=== PATIENT | female | born 1940 | race Caucasian/White ===

== ENCOUNTER 2017-05-08 08:04 | Day surgery (SDC) | payer MEDICARE ==
[~2017-05-08] VITALS: Ht 170.2 cm; Wt 76.2 kg
[~2017-05-08 08:04] MED LIST: ASPIR 8181 MG PO; CARAFATE1 GM PO; CRESTOR10 MG PO; CRESTOR20 MG PO; DAILY MULTIPLE1 EACH PO; HYDROCHLOROTHIA25 MG PO; KLOR-CON M2020 MEQ PO; LEVOTHYROXINE125 MCG PO; PRILOSEC OTC20 MG PO; PROPRANOLOL HCL20 MG PO
--- NOTE | 2017-05-08 09:13 | NUR ---
PT WAS VERY RECEPTIVE TO PRAYER, HAS GOOD FAMILY SUPPORT, HER NEICE IS WITH HER, AND SHE IS IN VERY GOOD ATTITUDE.
--- NOTE | 2017-05-08 09:49 | NUR ---
05/08/17 0949 Unique Christensen REPORT FROM WALTER SANCHEZ.
--- NOTE | 2017-05-11 12:08 | OR ---
[facility] [address], [place] [address] Signed DATE OF SERVICE: 05/08/2017 PREOPERATIVE DIAGNOSES: Epigastric pain. Acid reflux. Heart murmur. History of peptic ulcer disease. POSTOPERATIVE DIAGNOSIS: Distal patchy gastritis. PROCEDURE: Esophagogastroduodenoscopy with CLOtest and biopsies of the antrum. ESTIMATED BLOOD LOSS: None. INDICATIONS: Marie is a 76-year-old female, who presents for upper endoscopy. She is having epigastric abdominal pain and acid reflux and heartburn. She has used Zantac and Nexium in the past. She said it actually worked pretty well. More recently, she has been trying sucralfate with omeprazole. She said she is feeling better. She is pretty certain she had peptic ulcer disease in the past. 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 She said that was very stressful. Her 3 years ago from colorectal cancer. She said that was too much and she finally retired. Overall, she says she is feeling better. Nevertheless, she wanted to come and have her stomach checked. She has had several colonoscopies in the past so she is familiar with endoscopy. I had met with Marie in the office and I gave her a pamphlet on upper endoscopy. We reviewed the nature of that test along with its risks including but not limited to gas, bloating, crampy abdominal pain, bleeding, perforation requiring surgery, and missed diagnosis. We also discussed the need for IV conscious sedation. She had expressed understanding and wished to proceed. PROCEDURE NOTE: Marie was taken into our endoscopy suite and placed in the supine semi-recumbent position. She was given divided doses of 5 mg of Versed and 100 mcg of fentanyl. The posterior oropharynx was anesthetized with Hurricaine spray. A bite block was utilized for the case. The adult gastroscope was introduced ad advanced all the way out into the third portion of the duodenum under direct visualization with the camera without difficulty. The duodenum and pyloric channel were unremarkable. In her stomach, she does have some patchy erythematous changes just outside the opening of the antrum. We went and took some biopsies of this area along with a biopsy for CLOtest. The rest of the stomach was unremarkable. Upon retroflexion of the scope, she does not have a true hiatal hernia. A little bit of the stomach was pulled on the one side, but overall it is Electronically Signed By: JUAN JOSE MARTIN MD 05/11/17 1208 PATIENT NAME: MARIE GO OPERATIVE REPORT DATE OF : 42 PHYSICIAN: JUAN JOSE MARTIN MD REPORT #: [id number] REPORT IS CONFIDENTIAL AND NOT TO BE RELEASED WITHOUT AUTHORIZATION [facility] [address], [place] [address] Signed not a bad valve. There were no gastric or esophageal varices. The scope was withdrawn up to the area of the GE junction, which was compliant without stricture. The Z-line remains intact. There was no Bowman mucosa and no distal esophagitis. The rest of the esophagus was unremarkable. After this, the gas was suctioned out and the gastroscope removed. Marie tolerated the upper endoscopy quite well. RECOMMENDATIONS: I will see Marie back in my office in 7-14 days to review her results. It appears she is improving on her current regimen. MD KAVON Tamez/Nina /[id number] cc: Dr. Stephen Padilla,Nurse Practitioner Electronically Signed By: JUAN JOSE MARTIN MD 05/11/17 1208 PATIENT NAME: MARIE GO OPERATIVE REPORT DATE OF : 42 PHYSICIAN: JUAN JOSE MARTIN MD REPORT #: [id number] REPORT IS CONFIDENTIAL AND NOT TO BE RELEASED WITHOUT AUTHORIZATION
== END 2017-05-08 10:30 | disposition home or self-care (01) ==
LOC: OPS 08:04 → DS 08:04 → OPS 09:45
PROVIDERS: Colon & Rectal Surgery
PROC: 0DB68ZX Excision of Stomach, Via Natural or Artificial Opening Endoscopic, Diagnostic (ICD-10-PCS; principal; 2017-05-08 09:45)
DX: K29.50 Unspecified chronic gastritis without bleeding (principal); K21.9 Gastro-esophageal reflux disease without esophagitis; I10 Essential (primary) hypertension; E78.5 Hyperlipidemia, unspecified; E03.9 Hypothyroidism, unspecified; R73.9 Hyperglycemia, unspecified; J45.909 Unspecified asthma, uncomplicated; Z87.11 Personal history of peptic ulcer disease; Z79.82 Long term (current) use of aspirin; Z79.899 Other long term (current) drug therapy; Z90.710 Acquired absence of both cervix and uterus; Z88.1 Allergy status to other antibiotic agents
CPT/HCPCS: 86677; 88305; 99152; J2250; J3010; J7120

== ENCOUNTER 2019-10-28 12:25 | Day surgery (SDC) | payer MEDICARE ==
[~2019-10-28] VITALS: Ht 167.6 cm; Wt 78.0 kg
[~2019-10-28 12:25] MED LIST changes: +KRILL OIL500 MG PO
--- NOTE | 2019-10-28 15:33 | NUR ---
10/28/19 Debbie3 Madelin Sellers 1530-PATIENT ARRIVED TO PACU ON 2L NC AWAKE RR EVEN. DENIES PAIN OR NAUSEA. ENCOURAGED TO PASS GAS. LAYING LEFT LATERAL. IVF INFUSING.
--- NOTE | 2019-10-29 12:08 | OR ---
[facility] [address], [place] [address] Signed DATE OF OPERATION: 10/28/2019 SURGEON: Ramesh Garner MD PREOPERATIVE DIAGNOSIS: Clinical colovaginal fistula. POSTOPERATIVE DIAGNOSIS: Profound sigmoid and left-sided diverticulosis, no clear evidence of fistulous opening. PROCEDURES PERFORMED: 1. Total colonoscopy to cecum with cold morcellation polypectomy x2. 2. Hyperplastic polyps of rectosigmoid x2. ANESTHESIA: Intravenous sedation, fentanyl 100 mcg, Versed 5 mg. INDICATION: This 79-year-old white woman is a patient of Dr. Tracy Klein and Florinda Angulo [facility], in [place]. She has had clinical symptoms suggestive of colovaginal fistula. She has undergone hysterectomy in 1980. She underwent colonoscopy in the distant past, which she originally thought was normal, but upon review of records did show diverticulosis. She has no evidence of sepsis. No pneumaturia to suggest colocystic fistula, but episodic drainage per vagina of stool clinically consistent with colovaginal fistula. She is admitted at this time to undergo colonoscopy to rule out neoplastic disease or other causes of fistulization including inflammatory bowel disease. FINDINGS: Prep was good. Complete colonoscopy was undertaken to the cecum without question. She had numerous diverticuli of the distal sigmoid and left colon. Specific fistulous opening was not identified. There was no sign of cancer. She did have two hyperplastic polyps of the rectosigmoid, which were excised. DESCRIPTION OF PROCEDURE: The patient was brought to the endoscopy suite and placed in lateral decubitus position, given intravenous sedation to the point of slurred speech and nystagmus. Digital rectal examination was normal. An Olympus video colonoscope was passed in the rectum and manipulated throughout the colon noting numerous to large and small diverticuli of the sigmoid and left colon. The Electronically Signed By: RAMESH GARNER MD 10/29/19 1208 PATIENT NAME: GATITO GO OPERATIVE REPORT DATE OF : 42 REPORT #: [id number] PHYSICIAN: RAMESH GARNER MD PCP: FLORINDA ANGULO FMP-Cori REPORT IS CONFIDENTIAL AND NOT TO BE RELEASED WITHOUT AUTHORIZATION [facility] [address], [place] [address] Signed scope was ultimately advanced to the cecum. The ileocecal valve and appendiceal orifice were normal. Scope was withdrawn from that point and examination throughout showed no sign of abnormality until the numerous large and small diverticuli were noted. Careful inspection of the rectosigmoid area showed no sign of fistulization, though clinically it is obviously present. She had 2 small hyperplastic polyps there, which were excised with cold morcellation technique. Retroflexed view of the rectum was otherwise normal. The scope was removed. The patient was taken to recovery room in good condition. CONCLUDING DIAGNOSIS: Clinical evidence of colovaginal fistula, underlying problem likely significantly advanced diverticular disease with distant history of hysterectomy. PLAN: Consideration would be made for sigmoid resection for clinical diagnosis as noted. Whether or not the fistula needs to be demonstrated by some means is debatable and probably unlikely under this circumstances. We will see her back in the near future and review her options of management. MD SANDRA Saunders/MODL /[id number] cc: MD Florinda Ferreira FMP-C Copies: TRACY KLEIN MD, BETTY FMP-C ~ Electronically Signed By: RAMESH GARNER MD 10/29/19 1208 PATIENT NAME: GATITO GO OPERATIVE REPORT DATE OF : 42 REPORT #: [id number] PHYSICIAN: RAMESH GARNER MD PCP: FLORINDA ANGULO REPORT IS CONFIDENTIAL AND NOT TO BE RELEASED WITHOUT AUTHORIZATION
--- NOTE | 2019-10-30 14:01 | PATH ---
[facility] [address] [place], [place] [address] Signed SPECIMEN(S): A SIGMOID POLYP SPECIMEN SOURCE: A. SIGMOID POLYP CLINICAL HISTORY: Hemorrhoids/diverticulosis; hyperplastic polyps x2. MICROSCOPIC DESCRIPTION: Histologic sections of all submitted blocks are examined by light microscopy. These findings, together with the gross examination, support the pathologic diagnosis. FINAL PATHOLOGIC DIAGNOSIS: Sigmoid polyp: - Inflamed hyperplastic polyp (two fragments). JVR:cml:C2NR GROSS DESCRIPTION: The specimen, labeled "SC, hyperplastic polyps 2," is received in formalin and consists of three soft almanza tissue fragments that vary from 0.1-0.3 cm and are submitted in toto in cassette A1. SS (under the direct supervision of a pathologist) The Gross Description was prepared using a voice recognition system. The report was reviewed for accuracy; however, sound-alike word errors, addition and/or deletions may occur. If there is any question about this report, please contact Client Services. PERFORMING LABORATORY: The technical component was performed by [facility], [address] [place] [address] ([employer]: Pricila Estrada MD; CLIA# [id number]). Professional interpretation [place] [address] ([employer]: Aj Gibson M.D.). Diagnostician: Aj Gibson MD Pathologist Electronically Signed 10/30/2019 Copies: PATIENT NAME: GATITO GO PATHOLOGY DATE OF : 42 REPORT #: [id number] PHYSICIAN: CRISTINA PATHOLOGY PCP: KAILYN ANGULO REPORT IS CONFIDENTIAL AND NOT TO BE RELEASED WITHOUT AUTHORIZATION [address] [address] Signed ~ PATIENT NAME: GATITO GO PATHOLOGY DATE OF : 42 REPORT #: [id number] PHYSICIAN: CRISTINA PATHOLOGY PCP: KAILYN ANGULO REPORT IS CONFIDENTIAL AND NOT TO BE RELEASED WITHOUT AUTHORIZATION
== END 2019-10-28 16:25 | disposition home or self-care (01) ==
LOC: OPS 12:25 → DS 12:30 → OPS 14:00 → DS 14:00 → OPS 16:25
PROVIDERS: Surgery
PROC: 0DBN8ZX Excision of Sigmoid Colon, Via Natural or Artificial Opening Endoscopic, Diagnostic (ICD-10-PCS; principal; 2019-10-28 14:00)
DX: K51.40 Inflammatory polyps of colon without complications (principal); K57.30 Diverticulosis of large intestine without perforation or abscess without bleeding; N82.3 Fistula of vagina to large intestine; E03.9 Hypothyroidism, unspecified; Z88.1 Allergy status to other antibiotic agents; Z91.018 Allergy to other foods
CPT/HCPCS: 99153; G0500; J2250; J3010; J7121

== ENCOUNTER 2019-12-18 06:31 | Inpatient (IN) | payer MEDICARE ==
[~2019-12-18] VITALS: Ht 167.6 cm; Wt 73.5 kg
--- NOTE | ~2019-12-18 | DS ---
[facility] [address] [place], [place] [address] Draft ADMISSION DATE: 07/29/2020 DISCHARGE DATE: 08/02/2020 REASON FOR ADMISSION: This 80-year-old white woman is a patient of Dr. Tracy Klein, and was considered to have episodic air per vagina and reported stool per vagina as well. Her evaluation included pelvic exam by Dr. Klein, showing no obvious neoplasm of the vaginal canal in any way. The patient has had history of hysterectomy. Colonoscopy performed by co did confirm diverticulosis. There was no specific finding of fistulization that could be identified. On the basis of her clinical history of hysterectomy reported vaginal air and stool and known diverticulosis. She is considered likely to have a sigmoid diverticular vaginal fistula (colovaginal fistula) and on that basis is admitted to undergo sigmoid resection and remedy of the problem. PHYSICAL EXAMINATION: GENERAL: A well-developed, well-nourished, white woman in no distress. VITAL SIGNS: Height 5 feet 6 inches, weight 73 kg. BMI is 26.1 kg/m2. NECK: Shows no thyromegaly or cervical adenopathy. Trachea midline. CHEST: Clear. HEART: Regular without murmur. ABDOMEN: Soft and flat. RECTAL: Without obvious abnormality. PELVIC: Per the ore bridge operator, normal. HOSPITAL COURSE: The patient had undergone a bowel prep, anticipating sigmoid resection and probable omental pedicle flap to interpose between the anastomosis and vaginal cuff. Upon exploration of the abdomen, she had a very innocuous-appearing sigmoid, though it was somewhat fused to the left pelvic sidewall and sacrum angulating anteriorly to the bladder and contiguous with the posterior bladder wall. There was no sign of phlegmon of the sigmoid. No sign of dense scarring as is usually the case. Incomplete mobilization of the rectosigmoid including the examination of the infra-pelvic and peritoneum area showed no such finding of a colovaginal fissure nor rectovaginal fistula. Details may found in the operative report. On that basis, sigmoid resection was not performed, but an interposition graft of omentum between the rectum, sigmoid, and vaginal remnant was placed. A drain was also placed. There were no other findings of concern. HOSPITAL COURSE: After operation, she was taken to the regular nursing floor, where she was begun on PATIENT NAME: GATITO GO DISCHARGE SUMMARY DATE OF : 42 REPORT #: [id number] PHYSICIAN: RAMESH GARNER MD PCP: MICHELLE NUNO MD REPORT IS CONFIDENTIAL AND NOT TO BE RELEASED WITHOUT AUTHORIZATION [facility] [address] [place], [place] [address] Draft clear liquid diet. The drain was allowed to remain in place and antibiotics were given for the first 24 hours. Notably, a colotomy had been made in mobilizing the rectum, which was repaired with running suture and of course the interposed omentum also applied in the area. She had an unremarkable recovery with prompt recovery of bowel function, and she had a fair amount of diarrhea in the first 24 hours. The Hassan catheter was allowed to remain in place for approximately 48 hours. Stool was checked for C difficile, which showed no evidence of such infection. She was given loperamide, which slowed her bowel down completely. Advancement of her diet to allow for resolution of the diarrhea as well. By the time of discharge, she is ambulating well, tolerating a regular diet. The drain has been removed. She no longer has diarrhea problem and has been withdrawn from the loperamide, which was initiated. DISCHARGE MEDICATIONS: 1. Motrin 600 mg p.o. q.6 hours as needed for pain, #30, refill zero. 2. Tylenol 1000 mg p.o. q.6 hours as needed for pain, #60, no refill. 3. Loperamide 2 mg two tablets p.o. as needed for diarrhea, not to exceed 16 mg daily, dispense #20, refill 2. 4. She will continue her usual medication of aspirin 81 mg a day, hydrochlorothiazide 25 mg daily, potassium chloride 20 mEq p.o. daily, multivitamin one tablet p.o. daily, and propranolol 20 mg p.o. b.i.d. 5. Crestor 10 mg p.o. at bedtime. 6. Krill oil, probiotic one capsule and two tablets p.o. daily, respectively. 7. Synthroid 100 mcg p.o. daily. 8. Omeprazole 20 mg daily. I explained to the patient the operative findings. As there was no evidence of a true colovaginal or colovesical fistula, sigmoid resection was not performed as the disease involvement of the sigmoid seemed minimal in comparison to those typically requiring resection. Interposition graft and omentum between the vaginal cuff and the rectal remnant remains well positioned. I suspect that there was a misapprehension of true effluent vaginally of air or stool. She will be mindful going forward to that effect. Not mentioned previously was the intraoperative examination of the vaginal canal showing no sign of stool or sign of neoplasm or anything else to allow for visualization to hollow organs. DISCHARGE DIAGNOSES: 1. 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 2. History of hysterectomy. 3. Diverticulosis. 4. Hypothyroidism. PATIENT NAME: GATITO GO DISCHARGE SUMMARY DATE OF : 42 REPORT #: [id number] PHYSICIAN: RAMESH GARNER MD PCP: MICHELLE NUNO MD REPORT IS CONFIDENTIAL AND NOT TO BE RELEASED WITHOUT AUTHORIZATION [facility] [address] [place], [place] [address], [place] [address] Draft 5. Gastroesophageal reflux. 6. Dyslipidemia. 7. Chronic hypokalemia. FOLLOWUP PLAN: She is to return to see me in approximately a month. If she has any problems, she will let me know. MD SANDRA Saunders/SHAUN /[id number] cc: MD Tracy Ramirez MD Copies: MICHELLE NUNO MD, PATRICIA J MD ~ PATIENT NAME: GATITO GO DISCHARGE SUMMARY DATE OF : 42 REPORT #: [id number] PHYSICIAN: RAMESH GARNER MD PCP: MICHELLE NUNO MD REPORT IS CONFIDENTIAL AND NOT TO BE RELEASED WITHOUT AUTHORIZATION
--- NOTE | 2020-07-29 13:47 | NUR ---
07/29/20 1347 Sheets,Luisa 1334 PT ARRIVED TO PACU WITH ORAL AIRWAY IN PLACE AND ON 10L VIA MASK. VSS. 1337 PT WAKES TO TACTILE STIMULI AND ORAL REMOVED. EYES REMAIN CLOSED AND RN REORIENTING PT TO PACU. PT EASILY FALLS BACK TO SLEEP. 1345 O2 DECREASED TO 6L. PT REACHING FOR HER FACE AND EDUCATION GIVEN ABOUT SCRATCHING HER EYES.
--- NOTE | 2020-07-29 14:50 | NUR ---
PT ARRIVED TO ROOM 111 FROM PACU. PT ALERT BUT SLEEPY. O2 SATS IN HIGH 90'S TO 100% ON 2LPNC. PT DENIES PAIN, NAUSEA OR SOB. CALL LIGHT AND H2O IN REACH. ASSESSMENT COMPLETED. NO NEEDS OR CONCERNS VOICED.
--- NOTE | 2020-07-29 17:39 | NUR ---
PT RESTING SUPINE IN BED ALERT AND ORIENTED STATES SHE IS COMFORTABLE, OS SAT 99% ON RA. DINNER ORDERED PER PT REQUEST. NO FURTHER NEEDS OR CONCERNS VOICED.
--- NOTE | 2020-07-29 19:22 | NUR ---
SHIFT REPORT RECEIVED FROM FILIBERTO SANCHEZ. PT RESTING IN BED. ABD PAIN 2/, DENIES NEED FOR INTERVENTION. INCISIONS, BECERRIL AND ROMAIN DRAIN WNL. IV FLUIDS INFUSING PER ORDER. NO OTHER NEEDS AT THIS TIME. CALL LIGHT IN REACH.
--- NOTE | 2020-07-29 20:11 | NUR ---
CHARGE ROUNDING. ASSISTED WITH EVENING VS AND I&O'S. PRIMARY RN SPENCER IN ROOM TO ADMINISTER EVENING MEDS.
--- NOTE | 2020-07-29 20:15 | NUR ---
GOT PT ICE WATER PER RN REQUEST, PROVIDED, INTRODUSED SEFT TO PT, NO FURTHER REQUEST AT THIS TIME
--- NOTE | 2020-07-29 20:20 | NUR ---
ASSESSMENT, VS AND I&O COMPLETED. GCS 15, A&O X4. LUNGS CLEART, HEART TONES REGULAR. ABD SOFT, TENDER, MILDLY DISTENDED. INCISION WNL, COVERED MIDLINE. ROMAIN WNL, SS DRAINAGE. CMS INTACT X4 EXTREMITIES. BECERRIL WNL, CARE PROVIDED. IV CDI, WNL, FLUSHED WELL. SCHEDULED MEDS PROVIDED. /10 ABD PAIN, PT DENIES NEED FOR INTERVENTIONS. SCDs ON. NO OTHER NEEDS AT THIS TIME. CALL LIGHT IN REACH.
--- NOTE | 2020-07-29 21:45 | NUR ---
DR GARNER AT RN STATION AND PROVIDED WITH PT UPDATE REGARDING PT GETTING OOB. PT TOLERATED WELL. NO NEW ORDERS.
--- NOTE | 2020-07-29 22:09 | NUR ---
SCHEDULED MEDS PROVIDED. IV WNL. ABD PAIN 01/22, PT DENIES NEED FOR INTERVENTION. NO OTHER NEEDS AT THIS TIME. CALL LIGHT IN REACH.
--- NOTE | 2020-07-29 22:29 | NUR ---
GOT PT UP TO THE TOILET, SBA, PT IS BK IN BED AT THIS TIME, SCD'S PLUGGED BK IN, NO FURTHER REQUEST AT THIS TIME
--- NOTE | 2020-07-30 02:30 | NUR ---
TOOK PT VITALS AND I&Os, TOOK BP MULTIPLE TIMES AND TOOK ONE MANUAL, RN EMPTIED ROMAIN, NO FURTHER REQUEST AT THIS TIME
--- NOTE | 2020-07-30 02:48 | NUR ---
ASSESSMENT, VS AND I&O COMPLETED. JONE AND ROMAIN EMPTIED, WNL. GCS 15, A&O X4. CMS INTACT X 4 EXTREMITIES. BLE COVERED, DRY. LUNGS CLEAR, HEART TONES REGULAR. ABD SOFT AND NONTENDER. IV FLUIDS INFUSING PER ORDER. NO OTHER NEEDS AT THIS TIME. CALL LIGHT IN REACH.
--- NOTE | 2020-07-30 03:42 | NUR ---
PT CALLED TO GET UP TO THE TOILET, ASST PT TO CHANGE ATTENDS, INFORMED RN ABT IV PUMP IN STANDBY, ADDRESSED THE CAUSE, PT IS BK TO BED, SCDS RUNNING, NO FURTHER REQUEST AT THIS TIME
--- NOTE | 2020-07-30 03:55 | NUR ---
PT STATES SHE HAS 7/10 ABD PAIN. PRN PAIN MED AND ICE PACK PROVIDED. NO OTHER NEEDS AT THIS TIME. CALL LIGHT IN REACH.
--- NOTE | 2020-07-30 05:42 | NUR ---
VS AND I&O COMPLETED. BECERRIL AND ROMAIN DRAIN EMPTIED, WNL. IV WNL. PT PAIN DOWN TO A 3/10, NO NEED FOR FURTHER INTERVENTION. ICE WATER PROVIDED. NO OTHER NEEDS. CALL LIGHT IN REACH.
--- NOTE | 2020-07-30 06:24 | NUR ---
ASSESSMENT COMPLETED. GCS 15, A&O X4. OLDER HEAD LACERATION NOTED, DRY. PT COMPLAINS OF NECK PAIN BUT DECLINES PAIN MEDS, ICE PACK PROVIDED. LUNGS HAVE EXPIRATORY WHEEZING IN ALL LOBES. ABD SOFT, NONTENDER, BOWEL TONES ACTIVE. HR IRREGULAR. NO OTHER NEEDS AT THIS TIME. CALL LIGHT IN REACH. FAMILY IN ROOM.
--- NOTE | 2020-07-30 06:45 | NUR ---
PT HAS NOT MET [facility] ACCORDING TO MD PARAMETERS. MD NOTIFIED BY PHONE. ORDERS 500ML BOLUS OF LR @ 1000ML/HR. ORDER REPEATED BACK.
--- NOTE | 2020-07-30 07:00 | NUR ---
SCHEDULED LR BOLUS PROVIDED PER ORDER. PT UP TO BR. PT WANTS "TO JUST SIT IN THE BATHROOM FOR AWHILE". CALL LIGHT IN REACH.
--- NOTE | 2020-07-30 07:02 | NUR ---
PT SITTING UP IN BATHROOM HAVING BM AGREES TO USE CALL LIGHT WHEN FINISHED. REPORT RECEIVED FROM NOC SHIFT RN DANIEL PALMER.
[2020-07-30] MEDS ORDERED: LORAZEPAM0.5 MG PO (08:21)
[2020-07-30] MEDS ORDERED: CRESTOR20 MG PO (08:22)
[2020-07-30] MEDS ORDERED: KRILL OIL 1,001 EAC1 PO (08:23)
[2020-07-30] MEDS ORDERED: PROBIOTIC1 EAC7 PO (08:24)
[2020-07-30] MEDS ORDERED: LEVOTHYROXINE112 MCG PO (08:25)
[2020-07-30] MEDS ORDERED: LEVOTHYROXINE100 MCG PO (08:25)
--- NOTE | 2020-07-30 09:00 | NUR ---
Spoke with Marie, she is agitated/upset. States she ordered breakfast and it has come, ROMAIN is 1/2 full and she would like it emptied, let her know I will update her nurse. She states she has spent the night having diarrhea. She goes on to explain several things have happened recently, her transmission went out of her car this week, her TV has stopped working, and she had surgery. She is concerned as she lives alone in [place] in a 1 story home. She states she cannot go home alone. She then states her son will be here to work on her car and her daughter will be here Sunday, to stay a week with her. She states she is overwhelmed. She is concerned she will be discharged, informed I don't think that will happen for a day or so. Let her know Dr Hensley will see her today. She does not use any DME and drives self. She is active. Let her know, I will tell the nurse she needs breakfast and would like her ROMAIN emptied.
--- NOTE | 2020-07-30 09:35 | NUR ---
iv pump beeping pt in restroom and was assisted up to chair, clear liquid tray arrived and pt now eating, i vfluids infusing at 85ml/hr. call light and h2o in reach. pt denies further needs or concerns states pain is tolerable and denies nausea,sob or other symptoms.
--- NOTE | 2020-07-30 09:55 | NUR ---
Pt found to have low urine output of 50mls of concentrated lexi urine. Pt states "I'm drinking but its just coming out the other end" Pt has had multiple liquid stools this morning. DANIEL Reyes notified and agrees to notify Dr Hensley once he is finished with his current procedure.
[2020-07-30] MEDS ORDERED: OMEPRAZOLE20 MG PO (10:26)
--- NOTE | 2020-07-30 10:31 | NUR ---
pt reports 5/10 pain to abdomen states "I feel really bloated today". Bt's active, ice pack applied per pt request. PRN IV ofirmev also administered per pt request.
--- NOTE | 2020-07-30 11:13 | NUR ---
MED REC COMPLETE
--- NOTE | 2020-07-30 12:26 | NUR ---
PT ALERT, ORIENTED AND SUPPORTED BY HER DAUGHTER DALJIT. PT LOOKING FORWARD TO HAVING SOLID FOOD AGAIN, LIQUID LUNCH TRAY BROUGHT IN WHILE I WAS WITH PT. HAD OPPORTUNITY TO ENCOURAGE PT, GAVE HER A P.BERNADINEWL AND G.POST. PT REQUESTED PRAYER. WILL CONTINUE TO FOLLOW
--- NOTE | 2020-07-30 13:52 | OR ---
[facility] [address] [place], [place] [address] Signed DATE OF OPERATION: 07/29/2020 SURGEON: Ramesh Garner MD PREOPERATIVE DIAGNOSES: 1. 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 2. History of hysterectomy for benign disease. POSTOPERATIVE DIAGNOSES: 1. 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 2. History of hysterectomy for benign disease. 3. No clinical evidence of colovaginal fistula; fusion of rectum to the vaginal stump noted without clinical evidence of fistula. PROCEDURE: 1. Exploration of abdomen and dissection of deep pelvis and colovaginal septum. 2. Placement of a vascularized omental pedicle graft (interposition graft) between the rectum and the vagina. 3. Vaginal bivalve speculum exam. ANESTHESIA: General endotracheal; Ramesh Darden CRNA. INDICATION: This 80-year-old white woman, who is a patient of Dr. Klein and is considered to have episodic air per vagina as well as reported stool per vagina. Her evaluation included a pelvic exam by Dr. Klein, showing no obvious neoplasm of vaginal canal in any way. Colonoscopy performed by ct did confirm diverticulosis. There was no specific finding of fistulization that could be identified. On the basis of her clinical diagnosis of presumed colovaginal fistula, sigmoid resection with repair of the fistula has been recommended. Notably, she underwent hysterectomy a number of years ago for benign disease. She is admitted to undergo resection of sigmoid and repair of presumed colovaginal fistula. She understands the risks of bleeding, infection, recurrence, need for other indicated procedures. An omental pedicle flap was deemed possible as well depending on clinical findings. She understands and she wishes to proceed. Electronically Signed By: RAMESH GARNER MD 07/30/20 1352 PATIENT NAME: GATITO GO OPERATIVE REPORT DATE OF : 42 REPORT #: [id number] PHYSICIAN: RAMESH GARNER MD PCP: STEPHEN NUNO MD REPORT IS CONFIDENTIAL AND NOT TO BE RELEASED WITHOUT AUTHORIZATION [facility] [address] [facility] [place], [place] [address] Signed FINDINGS: There was surgical absence of the uterus as known. There was remnant of right fallopian tube, but no evidence of retained ovary tissue and diverticular change of the sigmoid, which were minimal, absolutely no thickening of the sigmoid mesentery, and fusion of the sigmoid to the posterior sacral area with anterior angulation of the rectum to the vaginal cuff remnant. The bladder appeared normal. Dissection of the low pelvis showed no evidence of a rectovaginal fistula and there clearly was no colovaginal fistula proper. An interposition omental pedicle graft was placed between the dissected anterior rectum and posterior vaginal wall. Speculum exam demonstrated no neoplasm of the vaginal cuff or vaginal canal in any way and no clinical evidence of fistulization at this point. Sigmoid resection was not undertaken due to the paucity of findings and the consideration that true rectovaginal fistula would need to be repaired transrectally rather than by pelvic approach. The gallbladder itself was palpably and visibly normal as was the liver and small bowel examined. The vascularized omental pedicle came from the central portion of the transverse colon with a dedicated vascular pedicle with it was secured to the septum between vaginal wall and rectal wall with good effect. A drain was placed. DESCRIPTION OF PROCEDURE: The patient was brought to the operating room and given a general endotracheal anesthetic, a Hassan catheter was placed. A full bowel prep including oral antibiotics, IV antibiotics had been given. After satisfactory anesthesia and placement of Hassan catheter, the abdomen was prepared with chlorhexidine solution and draped sterilely. An infraumbilical incision was made using an open technique, the abdomen entered without problem. There was no sign of ascites or carcinomatosis. The underlying small bowel was normal. A Bookwalter retractor was affixed to the table. The small bowel was packed cephalad and to the right and examined and found was an impressively redundant right colon the cecum extending down into the pelvis itself. The cecum was gathered up and retracted using laparotomy packs as well, exposing than only the left colon and the pelvic structures. These were secured with moist laparotomy packs and attachments to the Bookwalter retractors. Unexpected was a finding of an apparent fusion of the sigmoid mesentery to the sacrum. The more proximal colon had no obvious diverticular changes, though the sigmoid had a few but not many, and certainly no sign of inflammation or edema or intense thickening had been imagined based on her prior history. The pelvic peritoneum was well identified and below in the pelvis itself. There was surgical absence of the uterus and some adnexal remnants on the right and left side. Anteriorly, the rectum appeared to be contiguous with the posterior wall of the bladder. There was no real plane between the Electronically Signed By: RAMESH GARNER MD 07/30/20 1352 PATIENT NAME: GATITO GO OPERATIVE REPORT DATE OF : 42 REPORT #: [id number] PHYSICIAN: RAMESH GARNER MD PCP: STEPHEN NUNO MD REPORT IS CONFIDENTIAL AND NOT TO BE RELEASED WITHOUT AUTHORIZATION [address] [place], [place] [address] Signed two on inspection. There was some hypervascularity in the area of the bladder. The sigmoid was somewhat mobilized on its sigmoidal pedicle freeing the white line of Toldt and then over the pelvic brim. Quite clearly, the sigmoid and proximal rectum were well identified based on anatomic configuration of the tinea. There was certainly no diverticula contiguous with the posterior wall of the bladder or area corresponding to vaginal cuff. Considering that there was clinical findings of an enterovaginal fistula, dissection was carried below the pelvic peritoneum, mindful of the vascular supply to the proximal, mid, and lower rectum. Blunt dissection was used preserving vascular pedicles largely. There appeared to be no coil spring appearance of the rectum and sigmoid as is typical of such fistulae. The plane between the infra-pelvic rectum and the anterior structures was developed with blunt and electrocautery dissection, reasonably good plane was maintained between the two. Dissection was carried deep into the pelvis into the posterior aspect of the bladder seeking a fistulous connection possibly between the rectum and the vaginal canal. No such finding was evident. Uncertain as to the etiology of her presumed enterovaginal fistula, rectal sizers were obtained and were passed transvaginally by the circulating nurse identifying well the apex of the vaginal cuff. This area was marked with a single silk suture. Further dissection was undertaken behind the vaginal cuff and anterior to the rectal stump, again identifying no particular connection between the two. Dissection was lengthy and long and mobility of the rectum quite good overall, but again no clear connection between the vaginal remnant and the rectum itself. Anterior enterotomy to the mid rectum with a retracting Meche clamp was meticulously repaired with interrupted 3-0 silk sutures after aspirating minimal spilled liquid enteric contents. Reconsideration as to the underlying complaint prompting operation was then made. It is uncertain and increasingly unlikely that indeed she has an enterovaginal fistula at all. The possibility of this identification of the vaginal air and/or stool soilage was considered strongly. Rather than proceed with a needed very low anterior resection, it is deemed more advisable to simply place an omental pedicle graft as an interposing vascularized structure between the posterior wall of vagina and the anterior rectum. Transillumination of the omentum showed a dominant vessel in the midportion of the omentum. The left and right sides of this pedicle were sequentially clamped and divided and the vascularized pedicle drawn down into the pelvis and sewn in an interposition graft configuration between the posterior wall of the vagina and the anterior rectum. Electronically Signed By: RAMESH GARNER MD 07/30/20 1352 PATIENT NAME: GATITO GO OPERATIVE REPORT DATE OF : 42 REPORT #: [id number] PHYSICIAN: RAMESH GARNER MD PCP: STEPHEN NUNO MD REPORT IS CONFIDENTIAL AND NOT TO BE RELEASED WITHOUT AUTHORIZATION [facility] [address] [place] [id number] Signed Care was taken to take this pedicle around the left side of the abdomen, so as to not encumbered small bowel loops. Through a separate stab incision, a 7 mm flat Patrick drain was taken to the deep depths of the pelvis as well and secured the skin with nylon suture. The remaining intra-abdominal viscera were examined and found to be free of any problem. Good viability of the rectum and distal sigmoid was noted. The midline fascia was reapproximated with running 0 PDS suture in a bidirectional configuration. Subcutaneous tissue was irrigated and skin closed with running subcuticular 3-0 Vicryl. Steri-Strips were applied as was a silver sponge dressing. With the knee elevation and support by the circulating nurses, bimanual and bivalve speculum examination was undertaken of the vaginal canal. There was no evidence of neoplasm or clear evidence of fistulous opening nor any sign of enteric soiling in any way. The posterior structures of the vaginal canal were somewhat poorly supported and the possibility of a pelvic floor dysmorphia allowing for ambiguous determination of vaginal air versus rectal air considered more possible. A tap block was then placed by the explosive operator grenade and she was ultimately allowed to awaken fully from anesthesia and taken to the recovery room in good condition having suffered no complications. Sponge, needle, and instrument counts were reported as correct x3 . MD SANDRA Saunders/MODL /[id number] cc: MD Stephen Ferreira MD Copies: RIN KLEIN MD Electronically Signed By: RAMESH GARNER MD 07/30/20 1352 PATIENT NAME: GATITO GO OPERATIVE REPORT DATE OF : 42 REPORT #: [id number] PHYSICIAN: RAMESH GARNER MD PCP: STEPHEN NUNO MD REPORT IS CONFIDENTIAL AND NOT TO BE RELEASED WITHOUT AUTHORIZATION [facility] [address] [place], [place] [address] Signed STEPHEN NUNO MD ~ Electronically Signed By: RAMESH GARNER MD 07/30/20 1352 PATIENT NAME: GATITO GO OPERATIVE REPORT DATE OF : 42 REPORT #: [id number] PHYSICIAN: RAMESH GARNER MD PCP: STEPHEN NUNO MD REPORT IS CONFIDENTIAL AND NOT TO BE RELEASED WITHOUT AUTHORIZATION
--- NOTE | 2020-07-30 14:41 | NUR ---
PT RESTING SUPINE IN BED ALERT AND ORIENTED CALL LIGHT AND H2O IN REACH NO NEEDS OR CONCERNS VOICED.
--- NOTE | 2020-07-30 17:00 | NUR ---
PT ASSISTED UP TO RESTROOM WITH 2PA AND FWW PT HAS SLOW AND UNSTEADY GAIT REQUIRING LOTS OF PROMPTING WITH AMBULATION. PT WAS INCONTINANT OF URINE AND STOOL, PT CLEANED UP WITH ASSISTANCE FROM BRENDA SANCHEZ AND NEW GOWN PROVIDED PT BACK TO CHAIR IN SAME FASHION AND FRESH ICE WATER PROVIDED. PT DNEIES PAIN, SOB OR OTHER SYMPTOMS. CALL LIGHT AND H2O IN REACH.
--- NOTE | 2020-07-30 19:05 | NUR ---
SHIFT REPORT RECEIVED FROM FILIBERTO SANCHEZ. PT RESTING IN BED, VISITING WITH FAMILY. NO NEEDS AT THIS TIME. CALL LIGHT IN REACH.
--- NOTE | 2020-07-30 19:30 | NUR ---
SCHEDULED MED PROVIDED. PT REPORTS NAUSEA. PRN NAUSEA MED PROVIDED. NO OTHER NEEDS AT THIS TIME. CALL LIGHT IN REACH.
--- NOTE | 2020-07-30 21:20 | NUR ---
IV PUMP BEEPING, NEW BAG OF FLUIDS HUNG. pt REPORTED HER PAIN WAS "PRETTY GOOD" RIGHT NOW. NO FURTHER REQUESTS AT THIS TIME. CALL LIGHT WITHIN REACH. VISITOR AT BEDSIDE.
--- NOTE | 2020-07-30 21:47 | NUR ---
ASSESSMENT, VS AND I&O COMPLETED. BECERRIL AND PADMINI DRAIN EMPTIED. BECERRIL CARE PROVIDED. IV CDI, WNL, FLUSHED WELL. IV FLUIDS INFUSING PER ORDER. INCISION MIDLINE HAS SCANT DRIED BLOOD ON DRESSING, WNL. PADMINI DRAIN HAS DRIED BLOOD ON DRESSING, SS DRAINAGE. GCS 15, A&O X4. CMS INTACT X 4 EXTREMITIES. LUNGS CLEAR. HEART TONES REGULAR. AND SOFT, TENDER, MILDLY DISTENDED. PAIN 2/10 IN ABD, WARM BLANKET PROVIDED. WARM ULYSSES PROVIDED. NO OTHER NEEDS AT THIS TIME. CALL LIGHT IN REACH.
--- NOTE | 2020-07-31 | NUR ---
PT RESTING IN BED, EYES CLOSED. IV FLUIDS INFUSING PER ORDER. CALL LIGHT IN REACH.
--- NOTE | 2020-07-31 02:00 | NUR ---
PT RESTING IN BED, EYES CLOSED. RR EVEN, UNLABORED. IV FLUIDS INFUSING PER ORDER. CALL LIGHT IN REACH.
--- NOTE | 2020-07-31 04:07 | NUR ---
PT UP TO BR AND BAG TO BED, SBA. BECERRIL EMPTIED, CLEAR YELLOW OUTPUT. ROMAIN WNL, SS OUTPUT. IV WNL, IV FLUIDS INFUSING PER ORDER. ASSESSMENT COMPLETED. GCS 15, A&O X4. LUNGS CLEAR. HEART TONES REGULAR. ABD MILDLY DISTENDED, SOFT, TENDER, BOWEL TONES ACTIVE. INCISION MIDLINE WNL, COVERED. ABD PAIN 5/10, PRN PAIN MED PROVIDED. PT STILL HAVING LIQUID STOOL. WARM BLANKET PROVIDED. NO OTHER NEEDS. CALL LIGHT IN REACH.
--- NOTE | 2020-07-31 05:59 | NUR ---
VS AND I&O COMPLETED. BECERRIL WNL, YELLOW OUTPUT. ROMAIN WNL, SS OUTPUT. IV WNL, IV FLUIDS INFUSING PER ORDER. ABD PAIN 11/24, PT STATES NO NEED FOR INTERVENTION. ICE WATER PROVIDED. NO OTHER NEEDS AT THIS TIME. CALL LIGHT IN REACH.
--- NOTE | 2020-07-31 06:36 | NUR ---
PT STATES SHE HAS NAUSEA. PRN NAUSEA MED PROVIDED. NO OTHER NEEDS AT THIS TIME. CALL LIGHT IN REACH.
--- NOTE | 2020-07-31 07:43 | NUR ---
REPORT RECEIVED. PT IN BED WITH EYUES CLOSED. RESPIRATIONS EQUAL AND NONLABORED. CALL LIGHT IN REACH. LR AT 125 INFUSING WNL.
--- NOTE | 2020-07-31 09:57 | NUR ---
ASSESSMENT COMPLETED. PT UP IN ROOM INDEPENDENTLY TO BATHROOM. 4 MEDIUM BOWEL MOVEMENT TODAY. PT DESCRIBES THEM "SLIMY GREEN". PAIN IN ABDOMEN TREATED WITH TYLENOL. MIDLINE COVERED WITH SMALL AMOUNT OF SHADOWING. BOWEL TONES ACTIVE. SEROSANGENOUS DRAINAGE FROM PADMINI DRAIN. 600 ML EMPTIED FROM BECERRIL OF CLEAR YELLOW URINE. PLAN TO AMBULATE IN HALLS TODAY.
--- NOTE | 2020-07-31 12:00 | NUR ---
PT UP [facility] CHAIR FOR LUNCH. ABX GIVEN. CALL LIGHT IN REACH.
--- NOTE | 2020-07-31 12:40 | NUR ---
PT REPORTING 5/10 ABDOMINAL PAIN. PRN KETOROLAC ADMINISTERED.
--- NOTE | 2020-07-31 13:50 | NUR ---
DR GARNER TO ROUND. NEW ORDERS RECEIVED. BECERRIL DC'D WITH 8ML FLUID FROM BULB. 175 ML URINE DRAINED FROM BAG. IV SALINE LOCKED.
--- NOTE | 2020-07-31 17:00 | NUR ---
PT SITTING UP IN CHAIR FOR DINNER. VOIDED 200 ML. PADMINI DRAIN WITH SEROSANG DRAINAGE. NOT EMPTIED. DRESSING TO PADMINI DRAIN SITE CHANGED D/T LEAKING AROUND SITE. MIDLINE WITH NO INCREASE IN SHADOWING. PT REPORTS PAIN 10. REPORTS BM'S HAVE SLOWED DOWN. CALL LIGHT IN REACH.
--- NOTE | 2020-07-31 19:00 | NUR ---
SHIFT REPORT RECEIVED FROM DAYSHIFT DANIEL MARTINO AT BEDSIDE. PT AWAKE AND RESTING IN BED. DENIES NEEDS, CALL LIGHT IN REACH. FAMILY IN ROOM.
--- NOTE | 2020-07-31 19:22 | NUR ---
PRN PAIN MEDICATION GIVEN FOR 5-6/10 ABD PAIN (SEE EMAR). FRESH WATER AT BEDSIDE. NO ADDITIONAL NEEDS, CALL LIGHT IN REACH. SON IN ROOM.
--- NOTE | 2020-07-31 20:30 | NUR ---
ASSESSMENT COMPLETE, SCHEDULED MEDS GIVEN (SEE EMAR). PT COMPLIANT WITH CARE, AMBULATED IN HALLWAY WITH PAPER [place]E MACHINE TENDERDANIEL HOLT. TOLERATED WELL, REPORTED SOME WEAKNESS. VSS, PT ON RA. SCANT SHADOWING NOTED TO ABD MIDLINE DRESSING. ROMAIN EMPTIED, 28MLS OUTPUT NOTED. SEROSANGUINEOUS IN COLOR. NO NAUSEA REPORTED. PAIN CONTINUES AT 4-5/10 PAIN. WILL MONITOR. NO NEW NEEDS, CALL LIGHT INR EACH. SON IN ROOM. IV SITE WNL, FLUSHES EASILY.
--- NOTE | 2020-07-31 20:40 | NUR ---
DR GARNER ON PHONE, NEW ORDERS RECEIVED. TELEPHONE ORDER READ BACK FOR 16MEQ IV MAGNESIUM SULFATE X1 THEN 20MEQ IV POTASSIUM CHLORIDE X3 FOR TOTAL OF 60MEQ OF IV POTASSIUM CHLORIDE. ORDER READ BACK FOR CHEM 8 (BASIC) LAB FOR 0600. PER DR GARNER, OKAY TO ADD IV LIDOCAINE TO POTASSIUM PER POLICY. POTASSIUM ORDERS PUT IN BY PRISON TEACHERDANIEL HOLT, JORJE AFTER HOURS PROTOCAL. AM LAB ORDER PUT IN BY THIS RN. 2109 MAGNESIUM RIDER INFUSING, SITE WNL. CALL LIGHT IN REACH.
--- NOTE | 2020-07-31 21:57 | NUR ---
bag 1 of 6 potassium chloride infusing per md orders, lidocaine added per policy. verified with second rn sander. pt reports minimal discomfort at iv site, will monitor. no signs of infiltration noted. call light in reach.
--- NOTE | 2020-07-31 22:50 | NUR ---
CALL LIGHT ON. pt REPORTED PAIN FROM POTASSIUM INFUSION. NEW IV STARTED. pt REPORTED DISCOMFORT WITH NEW IV. SLOWED RATE OF INFUSION. WILL CONTINUE TO MONITOR.
--- NOTE | 2020-07-31 23:00 | NUR ---
PT RESTING IN BED, REPORTS IV IS "FINE". DENIES CONCERNS OR NEEDS. IV SITE WNL, CALL LIGHT IN REACH.
--- NOTE | 2020-07-31 23:13 | NUR ---
ROUNDED ON pt. RESTING IN BED. REPORTED THAT THERE IS SLIGHT DISCOMFORT BUT OKAY. WILL CALL IF IT INCREASES.
--- NOTE | 2020-07-31 23:22 | NUR ---
POTASSIUM COMPLETED, NEW BAG HUNG.
--- NOTE | 2020-08-01 00:42 | NUR ---
BAG 3 OF 6 POTASSIUM RIDER INFUSING, RATE 85MLS/HR FOR COMFORT. IV SITE WNL, PT DENEIS CONCERNS. CALL LIGHT IN REACH.
--- NOTE | 2020-08-01 01:10 | NUR ---
PT RESTING QUIETLY IN BED, IV POTASSIUM RIDER INFUSING PER MD ORDERS. SITE WNL. CALL LIGHT IN REACH.
--- NOTE | 2020-08-01 01:25 | NUR ---
PT CALLED FOR ASSISTANCE TO RESTROOM. SHE IS NOW BACK IN BED AND DENIES FURTHER NEEDS. CALL LIGHT IS CLOSE AND IV IS INFUSING FINE.
--- NOTE | 2020-08-01 01:59 | NUR ---
bag 4 of 6 potassium rider infusing, iv site wnl. lidocaine added per policy. verified by second rn sander. pt denies needs or concerns. call light in reach.
--- NOTE | 2020-08-01 03:17 | NUR ---
ADMINISTERED NEXT BAG OF POTASSIUM IT WILL RUN OVER 1 HR. PT DENIES FURTHER NEEDS AT THIS TIME. CALL LIGHT IS CLOSE AND IV IS INFUSING FINE.
--- NOTE | 2020-08-01 04:40 | NUR ---
ASSESSMENT COMPLETE, NO NEW CHANGES OR CONCERNS. 6 OF 6 POTASSIUM RIDER INFUSING AT 100MLS.HR. IV SITE WNL. PT DENIES NAUSEA, BT ACTIVE. REPORTS TOLERABLE 4/10 PAIN. NO NEW SHADOWING NOTED. CALL LIGHT IN REACH, NO FURTHER NEEDS.
--- NOTE | 2020-08-01 05:45 | NUR ---
VSS AND I&O'S COMPLETE. PUMP ALSO CLEARED. IV SITES X2 SL AND WNL. NO FURTHER NEEDS AT THIS TIME, CALL LIGHT IN REACH.
--- NOTE | 2020-08-01 06:50 | NUR ---
PT HAD AN MIRA OVERALL, SLEPT OFF AND ON. RECEIVED POTASSIUM AND MAGNESIUM RIDER AT START OF SHIFT. NEW IV PLACED TO LEFT FOREARM. ABD DRESSING INTACT, SCANT SHADOWING, SEROSANGUINEOUS IN COLOR. PADMINI DRAIN HAD 58MLS OUT FOR SHIFT. NO NAUSEA REPORTED, MULTIPLE BMS REPORTED THROUGHOUT SHIFT. VOIDING LARGE AMOUNTS. PAIN CONTROLLED WITH PRN MOTRIN AND TYLENOL. SBA WITH AMBULATION, WALKED IN HALLWAY AT START OF SHIFT.
--- NOTE | 2020-08-01 07:10 | NUR ---
REPORT RECEIVED. PT UP TO BATHROOM. SALINE LOCKED. CALL LIGHT IN REACH.
--- NOTE | 2020-08-01 09:58 | NUR ---
ASSESSMENT COMPLETED. PT UP IN CHAIR. PAIN 5/10. MOTRIN GIVEN. BOWEL TONES HYPERACTIVE. PT REPORTS 5 BM'S OVER NIGHT. 2 BM'S THUS FAR NOTE. MEDIUM IN SIZE AND GREEN/SLIMEY SEMILIQUID IN CONSISTENCY. DRAING WITH SEROSANG. MINIMAL. NOT EMPTIED. DRESSING INTACT. MINIMAL DRY DRAINAGE PRESENT. PT INDEPENDENT IN ROOM. NO NAUSEA/VOMITING. ATE 25% OF BREAKFAST.
--- NOTE | 2020-08-01 10:49 | NUR ---
PT SITTING UP IN CHAIR. PAIN REASSESSED AT 12/22. NO OTHER NEEDS FOR PAIN INTERVENTION. CALL LIGHT IN REACH. WATER REFRESHED.
--- NOTE | 2020-08-01 12:17 | NUR ---
IN TO [facility]. PT SITTING UP IN CHAIR. AMBULATED OUT IN HALLS WITH DAUGHTER. REPORTS 1 SMALL GREEM BM. VOIDING WELL AND DRINKING LOTS OF WATER. ATE 100% OF LUNCH.
--- NOTE | 2020-08-01 13:21 | NUR ---
DC'D ABDOMINAL DRESSING. SET PT UP FOR INDEPENDENT SHOWER. IMODIUM GIVEN. ICE PACK PROVIDED FOR ABDOMEN.
--- NOTE | 2020-08-01 14:46 | NUR ---
PATIENT AWAKE IN BED. DAUGHTER IN ROOM. VITALS AND I&OS CHARTED. CALL LIGHT IN REACH. NO OTHER NEEDS.
--- NOTE | 2020-08-01 15:37 | NUR ---
EVENING ASSESSMENT COMPLETED. PT DENIES BM BESIDES 3 THIS MORNING. DENIES PAIN. MIDLINE WELL APPROXIMATED. SEROSANG DRAINAGE. NOT EMPTIED. CALL LIGHT IN REACH.
--- NOTE | 2020-08-01 17:00 | NUR ---
PT OUT AMULATING HALLS. DENEIS PAIN OR NEEDS.
--- NOTE | 2020-08-01 19:05 | NUR ---
SHIFT REPORT RECEIVED FROM DAYSHIFT DANIEL MARTINO AT BEDSIDE. PT AWAKE AND RESTING IN CHAIR. DAUGHTER IN ROOM. PT REPORTS TOLERABLE PAIN, DENIES NEEDS OR CONCERNS. CALL LIGHT IN REACH.
--- NOTE | 2020-08-01 21:20 | NUR ---
TOOK VITALS/I&Os, GAVE ICE WATER, NEW ICE PACK, AND ICE CREAM CUP, RN TO BE IN RM SHORTLY, NO FURTHER REQUEST AT THIS TIME
--- NOTE | 2020-08-01 22:04 | NUR ---
ASSESSMENT COMPLETE, SCHEDULED MEDS GIVEN ALONG WITH PRN MOTRIN FOR 3/10 ABD PAIN. ABD SITE SHIP UNLOADER, STERI STRIPS INTACT. SITE WNL, NO SIGNS OF INFECTION. ORMAIN DRAIN ALSO INTACT, OUTPUT SEROSANGUINEOUS IN COLOR. DENIES NAUSEA, BT ACTIVE. PT CONTINUES TO REPORT DIARRHEA, IMODIUM GIVEN. NO ADDITIONAL NEEDS, CALL LIGHT IN REACH.
--- NOTE | 2020-08-01 22:41 | NUR ---
PT AWAKE AND RESTING IN BED, DENIES NEEDS. CALL LIGHT IN REACH.
--- NOTE | 2020-08-02 01:23 | NUR ---
PT RESTING IN BED WITH EYES CLOSED, RR EVEN AND UNLABORED. AUDIBLE SNORING NOTED, PT APPEARS COMFORTABLE AND RELAXED. NO DISTRESS NOTED. CALL LIGHT IN REACH.
--- NOTE | 2020-08-02 04:07 | NUR ---
PT RESTING IN BED WITH EYES CLOSED, RR EVEN AND UNLABORED. NO DISTRESS NOTED, CALL LIGHT IN REACH.
--- NOTE | 2020-08-02 05:37 | NUR ---
ASSESSMENT COMPLETE, NO NEW CHANGES. SCHEDULED THYROID MED GIVEN (SEE EMAR). PT UP TO VOID AND BACK TO BED, VSS. CALL LIGHT IN REACH.
--- NOTE | 2020-08-02 06:41 | NUR ---
PT HAD AN UNEVENTFUL NIGHT, SLEPT BETTER TONIGHT. PAIN CONTROLLED WITH PRN MOTRIN. SBA WITH AMBULATION, CALLS APPROPERIATELY. SOFT REGULAR DIET, TOLERATING WELL. NO NAUSEA REPORTED. NO DIARRHEA REPORTED, MIDLINE JOSE RAMON. TOTAL OUTPUT FOR PADMINI DRAIN, 28MLS. SEROSANGUINEOUS IN COLOR.
--- NOTE | 2020-08-02 07:20 | NUR ---
REPORT RECEIVED. PT AWAKE IN BED, DENIES PAIN. 28 ML FROM PADMINI DRAIN OVER NIGHT. NO BOWEL MOVEMENTS. PT REPORTS TO HAVE SLEPT WELL. CALL LIGHT IN REACH.
--- NOTE | 2020-08-02 08:47 | NUR ---
ROUNDED WITH DR GARNER. PADMINI DRAIN PULLED. PLAN FOR DISCHARGE DISCUSSED. IBIS HELD D/T NO BM'S.
[2020-08-02] MEDS ORDERED: ACETAMINOPHEN500 MG PO (08:50)
[2020-08-02] MEDS ORDERED: IBUPROFEN600 MG PO (08:50)
[2020-08-02] MEDS ORDERED: LOPERAMIDE2 MG PO (08:51)
--- NOTE | 2020-08-02 09:45 | NUR ---
Spoke with Marie. She is anxious to discharge. Awaiting Dr. Nieves. Denies any needs for dc. Daughter will pick her up and take her home to [place]. Daughter will stay a week with her.
--- NOTE | 2020-08-02 10:05 | NUR ---
PATIENT IS IN CHAIR RESTING. FRESH WATER GIVEN. DAUGHTER WILL SPOT WELDER LINE. SHOWER AT HOME. CALL LIGHT IN REACH. NO OTHER NEEDS AT THIS TIME.
--- NOTE | 2020-08-02 10:31 | NUR ---
DISCHARGE ISTRUCTIOSN PROVIDED, INCLUDING WEIGHT LIMIT, S/SX OF INFECTION, FOLLOW UP. PT REPORTING SOME DIZZINESS THAT SEEMS TO BE IMPROVING. DR GARNER AWARE. IV'S DC'D AND WNL. PHARMACY IN TO DISCUSS MEDICATIONS.
--- NOTE | 2020-08-02 13:49 | NUR ---
PT DRESSED, SITTING IN CHAIR LOOKING OUT WINDOW TRYING TO SPOT HER G.DAUGHTER WHO HAS FLOWN IN TO TAKE HER FOLLOWING DC. PT SEEMS EXCITED, C/O SOME DIZZINESS, BUT OTHER BRIGGS SAID SHE IS DOING WELL. GAVE BLESSING, PT THANKED ME FOR CHECKING
== END 2020-08-02 11:00 | disposition home or self-care (01) | DRG 349 ==
LOC: MS 01-01 06:45 → DSVR 07-29 09:00 → MS 07-29 09:30
PROVIDERS: ADMIT Surgery; ATTEND Surgery
PROC: 3E0T3BZ Introduction of Anesthetic Agent into Peripheral Nerves and Plexi, Percutaneous Approach (ICD-10-PCS; 2020-07-29)
PROC: 0DUP07Z Supplement Rectum with Autologous Tissue Substitute, Open Approach (ICD-10-PCS; principal; 2020-08-01)
DX: N82.3 Fistula of vagina to large intestine (principal); K57.30 Diverticulosis of large intestine without perforation or abscess without bleeding; E03.9 Hypothyroidism, unspecified; G89.18 Other acute postprocedural pain; R19.7 Diarrhea, unspecified; K21.9 Gastro-esophageal reflux disease without esophagitis; E78.5 Hyperlipidemia, unspecified; I10 Essential (primary) hypertension; E87.6 Hypokalemia; Z90.710 Acquired absence of both cervix and uterus; Z88.1 Allergy status to other antibiotic agents; Z79.899 Other long term (current) drug therapy
CPT/HCPCS: 00790; 36415; 76942; 80048; 83735; 85025; 87493; A9270; J0131; J0690; J0694; J1100; J1644; J1885; J2250; J2270; J2405; J2704; J2795; J3010; J3475; J3480; J7120; J7121

== ENCOUNTER 2020-12-20 19:24 | Emergency (ER) | payer MEDICARE ==
[~2020-12-20] VITALS: Ht 167.6 cm; Wt 73.9 kg
[~2020-12-20 19:24] MED LIST changes: +ACETAMINOPHEN500 MG PO; +IBUPROFEN600 MG PO; +KRILL OIL 1,001 EAC1 PO; +LEVOTHYROXINE100 MCG PO; +LEVOTHYROXINE112 MCG PO; +LOPERAMIDE2 MG PO; +LORAZEPAM0.5 MG PO; +OMEPRAZOLE20 MG PO; +PROBIOTIC1 EAC7 PO
== END 2020-12-20 21:15 | disposition home or self-care (01) ==
LOC: ED 19:24
DX: M79.604 Pain in right leg (principal); I10 Essential (primary) hypertension; E03.9 Hypothyroidism, unspecified; E78.00 Pure hypercholesterolemia, unspecified; Z88.8 Allergy status to other drugs, medicaments and biological substances; Z88.1 Allergy status to other antibiotic agents; Z79.899 Other long term (current) drug therapy; Z79.82 Long term (current) use of aspirin
CPT/HCPCS: 93971; 99283-25

== ENCOUNTER 2021-08-18 07:20 | Day surgery (SDC) | payer MEDICARE ==
[~2021-08-18] VITALS: Ht 167.6 cm; Wt 69.0 kg
--- NOTE | 2021-08-18 09:26 | NUR ---
08/18/21 0926 Sofia Arriaza 0920- PT ARRIVES TO PACU AROUSABLE TO STIMULI. RESP EVEN AND UNLABORED BUT WITH PERIODS OF APNEA. PT IS ABLE TO WAKE UP AND TAKE BREATHS WHEN ASKED. OXYGEN SAT HIGH 90'S TO 100% ON 3L VIA NC.
--- NOTE | 2021-08-19 06:46 | OR ---
[facility] [address], [place] [address] Signed DATE OF OPERATION: 07/18/2021 SURGEON: Juan Jose Martin MD PREOPERATIVE DIAGNOSES: 1. Recurrent epigastric abdominal pain. 2. Possible history of peptic ulcer disease. 3. Possible acid reflux. 4. History of mild gastritis 2016. POSTOPERATIVE DIAGNOSIS: Unremarkable upper endoscopy. PROCEDURES: Esophagogastroduodenoscopy with CLOtest and biopsies of the antrum. ESTIMATED BLOOD LOSS: None. INDICATIONS: Marie is an 81-year-old female, who was asked to see me for a followup upper endoscopy. I helped her in 2017. Her was quite ill at that time and she was having epigastric abdominal pain with acid reflux. It is uncertain whether or not she had peptic ulcer disease in the past. As is common, she had very mild inflammatory changes in the stomach and a negative CLOtest. 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 No fistula could be ascertained at the time of surgery. Therefore, no resection of the colon was performed. An omental pedicle was placed down over the top of the vagina. She thinks that she is having air and stool out of her vagina once a month rather than once a week now that she has had her surgery. In the meantime, she is concerned about recurrent epigastric abdominal pain. She describes taking sucralfate and omeprazole, which seems to be helping. Her primary care provider asked her to come and see me for upper endoscopy. Marie thinks her symptoms have been around for about 45 days or so. She thinks it is worse after eating. In the office, I gave Marie and her daughter a booklet on upper endoscopy. We had reviewed the nature of the test. She understands there is risk including, but not limited to gas bloating, crampy abdominal pain, bleeding, perforation requiring surgery, and missed diagnosis. She recalls the need for IV conscious sedation. She has done well with Versed and fentanyl in the past. She had expressed understanding and wished to proceed. Electronically Signed By: JUAN JOSE MARTIN MD 08/19/21 0646 PATIENT NAME: MARIE GO OPERATIVE REPORT DATE OF : 42 REPORT #: [id number] PHYSICIAN: JUAN JOSE MARTIN MD PCP: GUNNER VILLAVICENCIO PA-C REPORT IS CONFIDENTIAL AND NOT TO BE RELEASED WITHOUT AUTHORIZATION [facility] [address], [place] [address] Signed DESCRIPTION OF PROCEDURE: Marie was taken into our endoscopy suite and placed in the supine semi-recumbent position. She was given IV sedation with 3 mg of Versed and 100 mcg of fentanyl. The posterior oropharynx was anesthetized with lidocaine spray. A bite block was utilized for the case. The adult gastroscope was introduced and advanced quite readily out into the third portion of the duodenum without difficulty. The duodenum and pyloric channel were unremarkable. We had taken pictures throughout for photodocumentation. Really nothing found in the stomach itself. We went and took a biopsy out of the antrum for CLOtest as well as pathologic review. Upon retroflexion of scope, we really cannot visualize an obvious hiatal hernia. If anything, it would be quite tiny. The scope was withdrawn up through the area of the GE junction, which was compliant without stricture. There was minimal if any disruption to the Z-line. No Bowman's mucosa. No distal esophagitis. The middle and upper esophagus were unremarkable. After this, the gas was suctioned out and the gastroscope removed. Marie tolerated her procedure quite well. RECOMMENDATIONS: Marie can follow up my office in 7 to 14 days to review her results. Her symptoms may all be related to stress. Juan Jose Martin MD ALB/MODL /[id number] cc: MD Gunner Morelos PA Copies: JUAN JOSE MARTIN MD ~ Electronically Signed By: JUAN JOSE MARTIN MD 08/19/21 0646 PATIENT NAME: MARIE GO OPERATIVE REPORT DATE OF : 42 REPORT #: [id number] PHYSICIAN: JUAN JOSE MARTIN MD PCP: GUNNER VILLAVICENCIO PA-C REPORT IS CONFIDENTIAL AND NOT TO BE RELEASED WITHOUT AUTHORIZATION
--- NOTE | 2021-08-19 15:10 | PATH ---
[facility] [address], [place] [address] Signed SPECIMEN(S): A ANTRUM/PYLORUS BIOPSY SPECIMEN SOURCE: A. ANTRUM/PYLORUS BIOPSY CLINICAL HISTORY: History of acid reflux, epigastric pain. MICROSCOPIC DESCRIPTION: Histologic sections of all submitted blocks are examined by light microscopy. These findings, together with the gross examination, support the pathologic diagnosis. FINAL PATHOLOGIC DIAGNOSIS: Stomach, antrum/pylorus, biopsy: - Gastric antral mucosa with no significant pathologic changes. - Negative for Helicobacter pylori with HE stains. BRP:cml:C2NR GROSS DESCRIPTION: The specimen, labeled "SC, 1," and designated on the requisition "antrum/pylorus," is received in formalin and consists of one almanza soft tissue fragment that measures 0.3 cm in greatest dimension. The specimen is entirely submitted in cassette (A1). AT (under the direct supervision of a pathologist) The Gross Description was prepared using a voice recognition system. The report was reviewed for accuracy; however, sound-alike word errors, addition and/or deletions may occur. If there is any question about this report, please contact Client Services. PERFORMING LABORATORY: The technical component was performed by [facility], [address] [place] [id number] (Deputy Chief Executive: Pricila Estrada MD; CLIA# [id number]). [facility] [address] [address] (CLIA# [id number]). Diagnostician: Nam Perez MD Pathologist Electronically Signed 08/19/2021 PATIENT NAME: GATITO GO PATHOLOGY DATE OF : 42 REPORT #: [id number] PHYSICIAN: JEANINEYTE PATHOLOGY PCP: GUNNER VILLAVICENCIO PA-C REPORT IS CONFIDENTIAL AND NOT TO BE RELEASED WITHOUT AUTHORIZATION [facility] [address] [place] [id number] Signed Copies: ~ PATIENT NAME: GATITO GO PATHOLOGY DATE OF : 42 REPORT #: [id number] PHYSICIAN: INCYTE PATHOLOGY PCP: GUNNER VILLAVICENCIO PA-C REPORT IS CONFIDENTIAL AND NOT TO BE RELEASED WITHOUT AUTHORIZATION
== END 2021-08-18 10:04 | disposition home or self-care (01) ==
LOC: DS 07:20 → OPS 07:20 → DS 09:00 → OPS 10:04
PROVIDERS: ATTEND Colon & Rectal Surgery
PROC: 0DB78ZX Excision of Stomach, Pylorus, Via Natural or Artificial Opening Endoscopic, Diagnostic (ICD-10-PCS; principal; 2021-08-18 09:00)
DX: R10.13 Epigastric pain (principal); E03.9 Hypothyroidism, unspecified; E78.5 Hyperlipidemia, unspecified; I10 Essential (primary) hypertension; K21.9 Gastro-esophageal reflux disease without esophagitis; Z88.8 Allergy status to other drugs, medicaments and biological substances; Z91.048 Other nonmedicinal substance allergy status
CPT/HCPCS: 83009; G0500; J2250; J3010